=== PATIENT | female | born 1975 | race Hispanic/Latino ===

== ENCOUNTER 2018-08-06 17:47 | Inpatient (IN) | payer SELFPAY ==
[2018-08-06] MEDS ORDERED: BABY ASPIRIN PO ONE (18:38)
--- NOTE | 2018-08-06 18:48 | Emergency Department Report ---
ED Chest Pain HPI - General Chief Complaint: Chest Pain Stated Complaint: CHEST PAIN/IRVING Time Seen by Provider: 08/06/18 18:38 Source: patient Mode of arrival: Ambulatory Limitations: No Limitations - History of Present Illness Initial Comments: Patient is 42 years old female with no significant past medical history except for hypertension for which she is not taking any medication. 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 Patient presented to the ER complaining of chest pain and shortness of breath, on and off for the last 2 weeks but since yesterday it became more frequent. Patient described her pain as dull aching pain continue for approximately 10 minutes and resolved. Patient also reported a lot of shaking and approximately 20 bound weight loss in the last 4 month. Patient denied any fever, nausea or vomiting. MD Complaint: chest pain - Related Data Allergies Allergy/AdvReac Type Severity Reaction Status Date / Time codeine Allergy Unknown Verified 08/06/18 17:54 Heart Score - HEART Score History: Moderately suspicious EKG: Significant ST-depression Age: < 45 Risk factors: 1-2 risk factors Troponin: < normal limit HEART Score: 4 - Critical Actions Critical Actions: 4-6 pts:12-16.6% risk of adverse cardiac event. Should be admitted ED Review of Systems ROS: Stated complaint: CHEST PAIN/IRVING Other details as noted in HPI Comment: All other systems reviewed and negative Constitutional: denies: chills, fever Respiratory: shortness of breath, SOB with exertion, SOB at rest. denies: cough, orthopnea, wheezing Cardiovascular: chest pain, palpitations. denies: dyspnea on exertion, orthopnea Gastrointestinal: denies: abdominal pain, nausea, vomiting, diarrhea, constipation, hematemesis, melena, hematochezia Musculoskeletal: denies: back pain Neurological: denies: headache, weakness, numbness, paresthesias, confusion Psychiatric: anxiety. denies: depression, auditory hallucinations, visual hallucinations, homicidal thoughts, suicidal thoughts ED Physical Exam - General Limitations: No Limitations General appearance: alert, in no apparent distress - Head Head exam: Present: atraumatic, normocephalic, normal inspection - Eye Eye exam: Present: normal appearance, PERRL - ENT ENT exam: Present: normal exam, normal orophraynx, mucous membranes moist - Neck Neck exam: Present: normal inspection, full ROM. Absent: tenderness, meningismus, lymphadenopathy, thyromegaly - Respiratory Respiratory exam: Present: normal lung sounds bilaterally. Absent: respiratory distress, wheezes, rales, rhonchi, stridor, accessory muscle use, decreased breath sounds, prolonged expiratory - Cardiovascular Cardiovascular Exam: Present: tachycardia - GI/Abdominal GI/Abdominal exam: Present: soft, normal bowel sounds. Absent: distended, tenderness, guarding, rebound, rigid, pulsatile mass - Extremities Exam Extremities exam: Present: normal inspection, full ROM, normal capillary refill. Absent: tenderness, pedal edema, calf tenderness - Back Exam Back exam: Present: normal inspection, full ROM. Absent: CVA tenderness (R), C VA tenderness (L), muscle spasm, paraspinal tenderness, vertebral tenderness - Neurological Exam Neurological exam: Present: alert, oriented X3, CN II-XII intact, normal gait, reflexes normal - Skin Skin exam: Present: warm, intact, normal color ED Course Vital Signs 08/06/18 08/06/18 08/06/18 18:49 19:01 19:11 Pulse Rate 103 H 91 H 94 H Respiratory 14 13 14 Rate Blood Pressure 162/96 162/96 O2 Sat by Pulse 100 100 100 Oximetry 08/06/18 08/06/18 20:00 23:01 Pulse Rate 80 97 H Respiratory 12 15 Rate Blood Pressure 151/94 145/87 O2 Sat by Pulse 100 100 Oximetry ED Medical Decision Making - Lab Data Result diagrams: 08/06/18 18:58 08/06/18 18:58 - EKG Data -: EKG Interpreted by Nv EKG shows normal: sinus rhythm Rate: tachycardia - EKG Data 08/06/18 18:52 a left bundle branch block. No previous EKG to compare. - Radiology Data Radiology results: report reviewed Referring Physician: THELMA TORRES Patient Name: NUSRAT TA Date of : 1975 Sex: Female Report Date: 2018-08-06 Report Status: Finalized Findings [facility] [address] [place] [address] Cat Scan Report Signed Patient: NUSRAT TA MR#: [id number] : 1975 Acct:[id number] Age/Sex: 42 / F ADM Date: 08/06/18 Loc: ED Attending Dr: Ordering Physician: THELMA TORRES Date of Service: 08/06/18 Procedure(s): CT angio chest Accession Number(s): [id number] cc: THELMA TORRES PROCEDURE: CT ANGIO CHEST TECHNIQUE: Computerized tomographic angiography of the chest was performed after the IV injection of iodinated nonionic contrast including image processing. The image data was postprocessed using 2-dimensional multiplanar reformatted (MPR) and 3-dimensional (MIP and/or volume rendered) techniques. Automated exposure control, adjustment of mA and/or kV according to patient size, or iterative reconstruction dose optimization techniques were utilized. CT DOSE LENGTH PRODUCT: 321.5 mGycm HISTORY: CHEST PAIN WITH SOB COMPARISONS: Chest x-ray . FINDINGS: Heart and pericardium: Normal. Thoracic aorta: Normal. Pulmonary vasculature: Suboptimal enhancement. Lymph nodes: No enlarged thoracic lymph nodes. Lungs: Normal. Pleural space: No effusion, thickening, or pneumothorax. Musculoskeletal structures: No significant abnormality. Upper abdominal structures: No significant abnormality. IMPRESSION: No embolism seen. Suboptimal enhancement of the pulmonary arteries. No focal infiltrate. This document is electronically signed by Crescencio Jones MD., August 06 2018 10:59:27 PM ET Transcribed By: BR Dictated By: CRESCENCIO JONES MD Electronically Authenticated By: CRESCENCIO JONES MD Signed Date/Time: 08/06/182300 DD/ 16 TD/TT: 08/06/182216 - Medical Decision Making Patient is 42 years old female with no significant past medical history except for hypertension for which she is not taking any medication. 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 Patient presented to the ER complaining of chest pain and shortness of breath, on and off for the last 2 weeks but since yesterday it became more frequent. Patient described her pain as dull aching pain continue for approximately 10 minutes and resolved. Patient also reported a lot of shaking and approximately 20 bound weight loss in the last 4 month. Patient denied any fever, nausea or vomiting. Patient EKG show a left bundle-branch block. No previous EKG to compare. 2 sets of troponin is negative so far. Chest x-ray is negative. D-dimer elevated but a CTA chest is negative for PE or any other pathology. Thyroid panel is negative. Rest of the labs reviewed and is unremarkable. I discussed the patient is Dr. Bear, from cardiology. He advised to admit the patient to hospitalist and he will be consulted and the patient. I discussed the patient is Dr. Didi Kenney, she agreed to admit the patient to medical service. Critical Care Time: Yes Critical care time in (mins) excluding proc time.: 30 Critical care attestation.: If time is entered above; I have spent that time in minutes in the direct care of this critically ill patient, excluding procedure time. ED Disposition Clinical Impression: Chest pain, Left bundle branch block Disposition: 09 OP ADMIT IP TO THIS HOSP Is pt being admited?: Yes Condition: Stable Instructions: Chest Pain (ED) Referrals: OWNE KINSEY MD [Primary Care Provider] - 3-5 Days
[2018-08-06 19:11] LABS: Hematocrit 30.1 % (30.3-42.9); Hemoglobin 9.6 gm/dl (10.1-14.3); Mean Corpuscular HGB Conc 32 % (30-34); Mean Corpuscular Volume 88 fl (79-97); Platelet Count 217 K/mm3 (140-440); Red Blood Count 3.43 M/mm3 (3.65-5.03)
[2018-08-06 19:17] LABS: Red Cell Distribution Width 20.1 % (13.2-15.2)
[2018-08-06 19:25] LABS: INR 0.87 (0.87-1.13)
[2018-08-06 19:26] LABS: Partial Thromboplastin Time 23.1 Sec. (24.2-36.6)
[2018-08-06 19:32] LABS: BUN/Creatinine Ratio 14; Blood Urea Nitrogen 11 mg/dL (7-17); Hemolysis Index 6
[2018-08-06 19:42] LABS: Free T4 (Free Thyroxine) 0.98 ng/dL (0.76-1.46)
[2018-08-06 20:47] LABS: Band Neutrophils # (Manual) 0.6 K/mm3; Total Cells Counted 100
[2018-08-06 20:48] LABS: Anisocytosis 1+; Hypochromasia 1+; Platelet Estimate Consistent w Auto
[2018-08-06] MEDS ORDERED: ASPIRIN ONE (21:46)
[2018-08-06] MEDS ORDERED: BABY ASPIRIN ONE (21:50)
[2018-08-06 22:17] LABS: Alanine Aminotransferase 16 units/L (7-56); Bilirubin,Direct < 0.2 mg/dL (0-0.2)
--- NOTE | 2018-08-06 22:53 | XRay Report ---
PROCEDURE: XR CHEST ROUTINE 2V TECHNIQUE: PA and lateral chest radiographs were obtained. HISTORY: Chest Pain COMPARISONS: None. FINDINGS: Heart: Normal. Mediastinum/Vessels: Normal. Lungs/Pleural space: Normal. Bony thorax: No acute osseous abnormality. IMPRESSION: Normal examination. This document is electronically signed by Randolph Jones MD., August 06 2018 10:51:43 PM ET
--- NOTE | 2018-08-06 23:01 | Cat Scan Report ---
PROCEDURE: CT ANGIO CHEST TECHNIQUE: Computerized tomographic angiography of the chest was performed after the IV injection of iodinated nonionic contrast including image processing. The image data was postprocessed using 2-di mensional multiplanar reformatted (MPR) and 3-dimensional (MIP and/or volume rendered) techniques. Au tomated exposure control, adjustment of mA and/or kV according to patient size, or iterative reconstr uction dose optimization techniques were utilized. CT DOSE LENGTH PRODUCT: 321.5 mGycm HISTORY: CHEST PAIN WITH SOB COMPARISONS: Chest x-ray . FINDINGS: Heart and pericardium: Normal. Thoracic aorta: Normal. Pulmonary vasculature: Suboptimal enhancement. Lymph nodes: No enlarged thoracic lymph nodes. Lungs: Normal. Pleural space: No effusion, thickening, or pneumothorax. Musculoskeletal structures: No significant abnormality. Upper abdominal structures: No significant abnormality. IMPRESSION: No embolism seen. Suboptimal enhancement of the pulmonary arteries. No focal infiltrate. This document is electronically signed by Randolph Jones MD., August 06 2018 10:59:27 PM ET
[2018-08-07 00:16] LABS: Bilirubin,Urine NEG (Negative); Blood,Urine NEG (Negative); Color,Urine Straw (Yellow); Protein,Urine <15 mg/dL mg/dL (Negative); Urobilinogen,Urine < 2.0 mg/dL (<2.0)
[2018-08-07 00:25] LABS: Amphetamine Screen,Urine PRESUMPTIVE NEGATIVE; Benzodiazepines Screen,Urine PRESUMPTIVE NEGATIVE; Cannabinoid Screen,Urine PRESUMPTIVE NEGATIVE; Cocaine Screen,Urine PRESUMPTIVE NEGATIVE; Methadone Screen,Urine PRESUMPTIVE NEGATIVE; Opiate Screen,Urine PRESUMPTIVE NEGATIVE
[2018-08-07] MEDS ORDERED: ZOFRAN IV PRN (01:42)
[2018-08-07] MEDS ORDERED: TYLENOL PO PRN (01:42)
[2018-08-07] MEDS ORDERED: SODIUM CHLORIDE FLUSH SYRINGE 10 ML IV PRN (01:42)
[2018-08-07] MEDS ORDERED: MORPHINE IV PRN (01:42)
--- NOTE | 2018-08-07 02:03 | History and Physical Report ---
History of Present Illness Date of examination: 08/07/18 Date of admission: 08/07/18 01:13 History of present illness: 42-year-old and a history of hypertension, come to ER with complaints of chest pain. It has been intermittent over the last one year but has now become more constant. Pain is in the epigastric area, dull, intermittent 1 minutes, intensity 4/10, no radiation, Arash and infected renal related factors. Shortness of breath, nausea vomiting, diaphoresis, palpitation Review of systems Constitutional: no weight loss, chills, fever Ears, eyes, nose, mouth and throat: no nasal congestion, no nasal discharge, no sinus pressure, no vision change, no red eye. Neck: No neck pain or rigidity. Cardiovascular: no palpitations,+ chest pain Respiratory: no cough, shortness of breath Gastrointestinal: no hematochezia, abdominal pain Genitourinary : no frequency , no hematuria Musculoskeletal: no joint swelling or muscle ache Integumentary: no rash, no pruritis Neurological: no parathesias, no focal weakness Endocrine: no cold or heat intolerance, no polyuria or polydipsia Hematologic/Lymphatic: no easy bruising, no easy bleeding, no gland swelling Allergic/Immunologic: no urticaria, no angioedema. PAST MEDICAL HISTORY:hypertension PAST SURGICAL HISTORY: Nephrectomy SOCIAL HISTORY: Denies alcohol, drugs, tobacco FAMILY HISTORY: Hypertension Medications and Allergies Allergies Allergy/AdvReac Type Severity Reaction Status Date / Time codeine Allergy Unknown Verified 08/06/18 17:54 Home Medications Medication Instructions Recorded Confirmed Last Taken Type No Known Home Medications [No 08/07/18 08/07/18 Unknown History Reported Home Medications] Active Meds: Active Medications Acetaminophen (Tylenol) 650 mg PO Q4H PRN PRN Reason: Pain MILD(1-3)/Fever >100.5/ARTHUR Enoxaparin Sodium (Lovenox) 40 mg SUB-Q QDAY BRYSON Morphine Sulfate (Morphine) 2 mg IV Q4H PRN PRN Reason: Pain, Moderate (4-6) Ondansetron HCl (Zofran) 4 mg IV Q4H PRN PRN Reason: Nausea And Vomiting Sodium Chloride (Sodium Chloride Flush Syringe 10 Ml) 10 ml IV BID BRYSON Sodium Chloride (Sodium Chloride Flush Syringe 10 Ml) 10 ml IV PRN PRN PRN Reason: LINE FLUSH Exam - Physical Exam Narrative exam: General Apperance: The patient lying in bed, breathing comfortable HEENT: Normocephalic, atraumatic. Pupils equally round and reactive to light, EOMI, no sclericterus or JVD or thyromegaly or nodule. , no carotid bruit, mucous membranes moist, no exudate or erythema Heart: S1-S2, regular is rhythm Lungs: Clear to auscultation bilaterally, breathing comfortable Abdomen: Positive bowel sounds, soft, nontender, nondistended, no organomegaly Extremities: No edema cyanosis clubbing Skin: no rash, nodule, warm and dry Neuro: cranial nerves 2-12 intact, speech is fluent, motor/sensory intact - Constitutional Vitals: Temp Pulse Resp BP Pulse Ox 97 H 15 145/87 100 08/06/18 23:01 08/06/18 23:01 08/06/18 23:01 08/06/18 23:01 Results - Labs CBC & Chem 7: 08/06/18 18:58 08/06/18 18:58 Labs: Abnormal lab results 08/06/18 08/06/18 08/06/18 Range/Units 18:58 18:58 18:58 RBC 3.43 L (3.65-5.03) M/mm3 Hgb 9.6 L (10.1-14.3) gm/dl Hct 30.1 L (30.3-42.9) % RDW 20.1 H (13.2-15.2) % Monocytes % (Manual) 9.0 H (0.0-7.3) % Lymphocytes # (Manual) 0.7 L (1.2-5.4) K/mm3 APTT 23.1 L (24.2-36.6) Sec. D-Dimer 267.84 H (0-234) ng/mlDDU NT-Pro-B Natriuret Pep 1330 H (0-450) pg/mL Ur Specific Crucible (1.003-1.030) 08/07/18 Range/Units 00:05 RBC (3.65-5.03) M/mm3 Hgb (10.1-14.3) gm/dl Hct (30.3-42.9) % RDW (13.2-15.2) % Monocytes % (Manual) (0.0-7.3) % Lymphocytes # (Manual) (1.2-5.4) K/mm3 APTT (24.2-36.6) Sec. D-Dimer (0-234) ng/mlDDU NT-Pro-B Natriuret Pep (0-450) pg/mL Ur Specific Crucible > 1.059 H (1.003-1.030) - Imaging and Cardiology EKG: image reviewed Chest x-ray: image reviewed CT scan - chest: report reviewed Assessment and Plan Assessment Chest pain Hypertension Plan Admit medicine Check cardiac enzymes, stress test Cardiology was consulted to see the patient IV morphine, DVT prophylaxis
[2018-08-07 06:39] LABS: Hematocrit 29.5 % (30.3-42.9); Hemoglobin 9.6 gm/dl (10.1-14.3); Mean Corpuscular HGB Conc 32 % (30-34); Mean Corpuscular Volume 88 fl (79-97); Platelet Count 181 K/mm3 (140-440); Red Blood Count 3.34 M/mm3 (3.65-5.03)
[2018-08-07 06:42] LABS: Red Cell Distribution Width 20.3 % (13.2-15.2)
[2018-08-07 07:00] LABS: BUN/Creatinine Ratio 15; Blood Urea Nitrogen 9 mg/dL (7-17); Calcium 8.4 mg/dL (8.4-10.2); Hemolysis Index 1
[2018-08-07] MEDS ORDERED: LEXISCAN IV ONE ×2 (09:15)
[2018-08-07 10:24] LABS: Basophils % (Manual) 0 % (0.0-1.8); Total Cells Counted 100
[2018-08-07 10:25] LABS: Anisocytosis 1+; Platelet Estimate Consistent w Auto
[2018-08-07] MEDS ORDERED: COZAAR PO SCH (11:00)
[2018-08-07] MEDS ORDERED: TOPROL XL PO SCH (11:00)
[2018-08-07] MEDS ORDERED: HCTZ PO SCH (11:00)
--- NOTE | 2018-08-07 12:33 | Consultation ---
History of Present Illness Consult date: 08/07/18 Consult reason: chest pain History of present illness: Patient is a 42-year-old woman with a history of long-standing hypertension for which she discontinued medical therapy more than a year ago, stating that she felt "fine" after a short course of therapy for her hypertension. She presents to the hospital this time with atypical, poorly characterized right upper chest pain. Her pain was nonexertional, and appeared to move from the left upper chest to the right upper chest, no associated symptoms and poorly reproducible. On presentation to emergency room, her systolic blood pressure was 162, EKG was abnormal, sinus rhythm with a left bundle branch block. The patient is previously unaware of a history of left bundle branch block, and states that she has previously had an ECG that she could remember. She has no shortness of breath, no palpitations, no lower extremity edema. There is no history of syncope. After a rule out AR protocol, the medical service ordered a Lexiscan thallium stress test and a cardiac consultation. The patient has completed the Lexiscan stress and results are pending. Past History Past Medical History: hypertension Medications and Allergies Allergies Allergy/AdvReac Type Severity Reaction Status Date / Time codeine Allergy Unknown Verified 08/06/18 17:54 Home Medications Medication Instructions Recorded Confirmed Last Taken Type No Known Home Medications [No 08/07/18 08/07/18 Unknown History Reported Home Medications] Active Meds: Active Medications Acetaminophen (Tylenol) 650 mg PO Q4H PRN PRN Reason: Pain MILD(1-3)/Fever >100.5/ARTHUR Aspirin (Halfprin Ec) 81 mg PO QDAY BRYSON Enoxaparin Sodium (Lovenox) 40 mg SUB-Q QDAY BRYSON Hydrochlorothiazide (Hctz) 50 mg PO QDAY [facility] Losartan Potassium (Cozaar) 12.5 mg PO QDAY BRYSON Metoprolol Succinate (Toprol Xl) 25 mg PO QDAY BRYSON Morphine Sulfate (Morphine) 2 mg IV Q4H PRN PRN Reason: Pain, Moderate (4-6) Ondansetron HCl (Zofran) 4 mg IV Q4H PRN PRN Reason: Nausea And Vomiting Sodium Chloride (Sodium Chloride Flush Syringe 10 Ml) 10 ml IV BID BRYSON Sodium Chloride (Sodium Chloride Flush Syringe 10 Ml) 10 ml IV PRN PRN PRN Reason: LINE FLUSH Review of Systems Cardiovascular: chest pain, no orthopnea, no palpitations, no rapid/irregular heart beat, no edema, no syncope, no lightheadedness, no shortness of breath Physical Examination Vital Signs Pulse Resp Pulse Ox 103 H 14 100 08/06/18 18:49 08/06/18 18:49 08/06/18 18:49 General appearance: no acute distress HEENT: Positive: PERRL Neck: Positive: neck supple Cardiac: Positive: Reg Rate and Rhythm Lungs: Positive: Decreased Breath Sounds Neuro: Positive: Grossly Intact Abdomen: Positive: Soft Female genitourinary: deferred Skin: Positive: Clear Extremities: Absent: edema Results 08/07/18 06:23 08/07/18 06:23 Cardiac Enzymes 08/06/18 Range/Units 18:58 AST 29 (5-40) units/L Coagulation 08/06/18 Range/Units 18:58 PT 12.4 (12.2-14.9) Sec. INR 0.87 (0.87-1.13) APTT 23.1 L (24.2-36.6) Sec. CBC 08/06/18 08/07/18 Range/Units 18:58 06:23 WBC 4.6 4.0 L (4.5-11.0) K/mm3 RBC 3.43 L 3.34 L (3.65-5.03) M/mm3 Hgb 9.6 L 9.6 L (10.1-14.3) gm/dl Hct 30.1 L 29.5 L (30.3-42.9) % Plt Count 217 181 (140-440) K/mm3 Comprehensive Metabolic Panel 08/06/18 08/06/18 08/07/18 Range/Units 18:58 18:58 06:23 Sodium 138 141 (137-145) mmol/L Potassium 4.7 4.1 (3.6-5.0) mmol/L Chloride 102.3 105.7 (98-107) mmol/L Carbon Dioxide 25 22 (22-30) mmol/L BUN 11 9 (7-17) mg/dL Creatinine 0.8 0.6 L (0.7-1.2) mg/dL Glucose 95 96 (65-100) mg/dL Calcium 9.0 8.4 (8.4-10.2) mg/dL Direct Bilirubin < 0.2 (0-0.2) mg/dL Indirect Bilirubin 0.0 mg/dL AST 29 (5-40) units/L ALT 16 (7-56) units/L Alkaline Phosphatase 81 (35-129) units/L Total Protein 6.8 (6.3-8.2) g/dL Albumin 4.0 (3.9-5) g/dL EKG interpretations - Telemetry EKG Rhythm: Sinus Rhythm Assessment and Plan - Patient Problems (1) Chest pain Current Visit: Yes Status: Acute Plan to address problem: Chest pain is atypical, patient is status post Lexiscan thallium stress test, results are pending. (2) Left bundle branch block Current Visit: Yes Status: Acute Plan to address problem: Patient presents with an abnormal EKG, demonstrating a left bundle branch block of uncertain chronicity. Recommend echocardiogram for left ventricular function assessment, to rule out cardiomyopathy as a basis for the left bundle branch block. (3) Chronic hypertension Current Visit: Yes Status: Acute Plan to address problem: The patient has chronic hypertension for which she is not taken therapy. We will start therapy with an ARB, beta isabell and low-dose diuretic.
--- NOTE | 2018-08-07 14:21 | Treadmill Report ---
THALLIUM STRESS TEST REPORT LEFT VENTRICLE: Left ventricle is at least mildly dilated. Perfusion study demonstrates fairly homogeneous uptake of the tracer in all segments, no significant defects identified. There is normal apical thinning. Gated analysis demonstrates moderately severe left ventricular systolic dysfunction with ejection fraction calculated at 34%. CONCLUSION: Evidence of dilated cardiomyopathy, moderately severe left ventricular systolic dysfunction, ejection fraction of 34%. Perfusion study demonstrates no significant defects, suggesting a nonischemic cardiomyopathy. Clinical correlation is recommended. JOB# [id number] CA/NTS
[2018-08-07] MEDS: HALFPRIN EC PO SCH (15:23)
[2018-08-07] MEDS: ALDACTONE PO SCH (15:23)
[2018-08-07] MEDS: COZAAR PO SCH (15:23)
[2018-08-07] MEDS: HCTZ PO SCH (15:23)
[2018-08-07] MEDS: LOVENOX SUB-Q SCH (15:24)
[2018-08-07] MEDS: SODIUM CHLORIDE FLUSH SYRINGE 10 ML IV SCH ×2 (15:25→22:16)
[2018-08-07] MEDS: COREG PO SCH ×2 (15:28→22:15)
--- NOTE | 2018-08-07 16:23 | Event Note ---
Date: 08/07/18 Patient presented with chest pain. I have seen and examined her. For Echocardiogram.
[2018-08-07] MEDS ORDERED: AMBIEN PO ONE (23:00)
--- NOTE | 2018-08-08 11:10 | Progress Note ---
Assessment and Plan Chest pain is atypical Lexiscan thallium stress test reports no ischemia, EF 34% Left bundle branch block, uncertain chronicity Chronic hypertension not on therapy as an outpatient Recommend: Echocardiogram for left ventricular function assessment, to rule out cardiomyopathy as a basis for the left bundle branch block. Subjective Date of service: 08/08/18 Interval history: Patient reports she is feeling better. Objective Vital Signs Temp Pulse Pulse Resp BP Pulse Ox 08/08/18 08:14 98.2 F 18 114/72 08/08/18 03:50 97.9 F 63 16 107/67 98 08/08/18 03:00 63 08/07/18 23:10 98.2 F 87 16 103/71 97 08/07/18 23:00 103 H 18 98 08/07/18 22:15 72 129/71 08/07/18 19:23 98.3 F 75 16 115/67 98 08/07/18 19:00 103 H 08/07/18 16:02 97.7 F 18 124/77 08/07/18 11:49 97.5 F L 18 145/80 - Physical Examination General: No Apparent Distress HEENT: Positive: PERRL Neck: Positive: neck supple, trachea midline Cardiac: Positive: Reg Rate and Rhythm Lungs: Positive: Decreased Breath Sounds Neuro: Positive: Grossly Intact Extremities: Absent: edema
[2018-08-08] MEDS: HALFPRIN EC PO SCH (11:50)
[2018-08-08] MEDS: COREG PO SCH (11:50)
[2018-08-08] MEDS: COZAAR PO SCH (11:50)
[2018-08-08] MEDS: ALDACTONE PO SCH (11:50)
[2018-08-08] MEDS: LOVENOX SUB-Q SCH (11:52)
[2018-08-08] MEDS: SODIUM CHLORIDE FLUSH SYRINGE 10 ML IV SCH (11:52)
[2018-08-08] MEDS: HCTZ PO SCH (11:56)
--- NOTE | 2018-08-08 13:03 | Discharge Summary ---
Providers - Providers Date of Admission: 08/08/18 10:42 Date of discharge: 08/08/18 Attending physician: SERENITY URIAS 08/06/18 23:32 Consult to Physician [CONS] Stat Comment: Dr. Mariano spoke with Dr. Bear @ [id number] Consulting Provider: LESLEY BEAR Physician Instructions: Reason For Exam: chest pain, left bundle-branch block Primary care physician: [facility] MD JUAN Hospitalization Condition: Fair Hospital course: Patient is 42 yo with hypertension, presented with chest pain. she was seen and evaluated in ED. Troponin was normal. Patient was given Aspirin and admitted. She was evaluated by cardiology. stress test was done was normal, Echo revealed EF 35-40%. She was put on Lisinopril and Coreg. Chest pain determined to be non- cardiac so was discharged home. Chest pain due to GERD. Totaal time spent on discharge, 32 mins Disposition: DC-01 TO HOME OR SELFCARE - Discharge Diagnoses (1) GERD (gastroesophageal reflux disease) Status: Acute (2) Chest pain Status: Acute (3) Chronic hypertension Status: Acute (4) Cardiomyopathy Status: Acute (5) Left bundle branch block Status: Acute Core Measure Documentation - Palliative Care Palliative Care/ Comfort Measures: Not Applicable - Core Measures Any of the following diagnoses?: none Exam - Constitutional Vitals: Temp Pulse Resp BP Pulse Ox 98.2 F 63 18 114/72 98 08/08/18 08:14 08/08/18 03:50 08/08/18 08:14 08/08/18 08:14 08/08/18 03:50 Plan Activity: advance as tolerated Diet: low fat, low cholesterol, low salt Additional Instructions: 1.Follow up with PCP or [facility] in 1 week. 2.Follow up with Dr. Snow in 1 week Follow up with: OWEN KINSEY MD [Primary Care Provider] - 3-5 Days Prescriptions: Aspirin EC [Aspirin Enteric Coated TAB] 81 mg PO QDAY #30 tablet Carvedilol [Coreg] 6.25 mg PO BID #60 tablet Lisinopril [Zestril TAB] 20 mg PO QDAY #30 tablet
[2018-08-08 14:11] VITALS: BP 117/68
== END 2018-08-08 16:55 | disposition home or self-care (01) | DRG 313 ==
LOC: ED 17:47 → 4A 08-07 01:13 → OBSVTOIN 08-08 10:42
PROVIDERS: ADMIT Internal Medicine; ATTEND Internal Medicine
DX: R07.89 Other chest pain (principal); I42.8 Other cardiomyopathies; I44.7 Left bundle-branch block, unspecified; R94.31 Abnormal electrocardiogram [ECG] [EKG]; I10 Essential (primary) hypertension; Z88.5 Allergy status to narcotic agent; Z90.5 Acquired absence of kidney; Z82.49 Family history of ischemic heart disease and other diseases of the circulatory system
CPT/HCPCS: 36415; 71046; 71275; 78452; 80048; 80076; 80307; 81001; 83880; 84439; 84443; 84484; 84703; 85007; 85025; 85379; 85610; 85730; 93005; 93010; 93017; 93306; G0378; A9502; J1650; J2785; Q9967